=== PATIENT | male | born 1960 | race Caucasian/White ===

== ENCOUNTER 2017-06-23 11:34 | Emergency (ER) | payer BC ==
[~2017-06-23] VITALS: Ht 172.7 cm; Wt 93.0 kg
[~2017-06-23 11:34] MED LIST: AUGMENTIN 875875 MG PO; CEPHALEXIN500 M1 PO; HYDROCODONE BIT1 T11 PO; LIDEX 0.05% CRE15 GM T; NKHM
[2017-06-23 12:40] LABS: BASO % 0.3 % (0.0-1.0); EOS # 0.7 10*3/uL (0.0-0.4); EOS % 8.1 % (1.0-4.0); HEMATOCRIT 41.9 % (42.0-52.0); LYMPH # 1.1 10*3/uL (1.3-4.4); LYMPH % 12.1 % (27.0-41.0); MEAN CELL VOLUME 92.5 fl (80.0-94.0); MEAN CORPUSCULAR HGB 30.9 pg (27.0-31.0); MEAN CORPUSCULAR HGB CONC 33.4 g/dl (33.0-37.0); MEAN PLATELET VOLUME 10.8 fl (9.6-12.3); MONO # 0.6 10*3/uL (0.1-1.0); NEUT # 6.4 10*3/uL (2.3-7.9); NEUT % 71.8 % (47.0-73.0); PLATELET COUNT AUTOMATED 259 10*3/uL (130-400); RED BLOOD COUNT 4.53 10*6/uL (4.50-5.90); RED CELL DISTRI WIDTH 13.1 % (0-14.5)
[2017-06-23 12:51] LABS: BUN 11 mg/dl (7-24); CHLORIDE 103 mmol/L (98-107); CREATININE 0.98 mg/dL (0.70-1.30); POTASSIUM 3.9 mmol/L (3.5-5.1); SODIUM 138 mmol/L (136-145); URIC ACID 6.2 mg/dL (3.5-7.2)
[2017-06-23] MEDS ORDERED: NORCO 5-325 TA1 EACH PO (13:40)
[2017-06-23] MEDS ORDERED: INDOMETHACIN50 MG PO (13:45)
== END 2017-06-23 13:50 | disposition home or self-care (01) ==
LOC: ED 11:34
PROVIDERS: Nurse Practitioner Family
DX: M25.462 Effusion, left knee (principal); M10.9 Gout, unspecified

== ENCOUNTER → 2017-08-23 | Day surgery (SDC) | payer BC ==
[~2017-08-23] VITALS: Ht 172.7 cm; Wt 90.7 kg
[~2017-08-23] MED LIST changes: +INDOMETHACIN50 MG PO; +NORCO 5-325 TA1 EACH PO
--- NOTE | ~2017-08-23 | O ---
[place], [place] OPERATIVE NOTE NAME: VALE SHORT UNIT #: [id number] ROOM: DOCTOR: GIANLUCA MORGAN MD BIRTHDATE: [birth year] DOS: 08/23/2017 HISTORY OF PRESENT ILLNESS: A 57-year-old patient who was presented with abdominal pain, left lower quadrant pain. CT scan of the abdomen has been only positive for diverticulosis. Antibiotic therapy has been done x 10 days and resolved. ALLERGIES: No known medication. FAMILY HISTORY: Noncontributory. PAST SURGICAL HISTORY: Unremarkable. PAST MEDICAL HISTORY: Diverticulosis. PROCEDURE: Today's procedure part of investigation is colonoscopy plus polypectomy with a snare. PREMEDICATION: Propofol. SCOPE: Olympus forward-viewing colonoscope 10L video. REPORT: After putting the patient in left lateral position and application of lubricant to the scope, the scope was introduced. Thereafter, under direct visualization, advanced through the length of colon without difficulty. The only difficulty that I am facing is semi-liquid stool all along the length of colon. However, I achieved visualization of the appendix and ileocecal valve and photographed both. There was a sessile broad-based polypoid lesion in sigmoid colon, with a snare polypectomy, sample was recovered. The patient extubated, tolerated procedure well. IMPRESSION: Diverticulosis, sessile colonic polyp of the sigmoid colon, status post snare polypectomy. PLAN: Resumption of activity. FOLLOWUP: Routinely with you in office, p.r.n. visit with us in GI Clinic. Follow-up colonoscopy in 10 years unless patient has symptoms for which follow-up should be sooner. [place], [place] OPERATIVE NOTE NAME: VALE SHORT UNIT #: [id number] ROOM: DOCTOR: GIANLUCA MORGAN MD BIRTHDATE: [birth year] GIANLUCA MORGAN MD CM:OPRECORD:OPERATIVE NOTE [id number] GIANLUAC MORGAN MD 09/02/17 1736 interface
[2017-08-23 14:17] VITALS: BP 114/82
[2017-08-23 15:49] VITALS: BP 123/75
[2017-08-23 16:04] VITALS: BP 129/80
[2017-08-23 16:17] VITALS: BP 120/72
== END | disposition home or self-care (01) ==
LOC: SDC 08-20 13:15
DX: D12.5 Benign neoplasm of sigmoid colon (principal); K57.30 Diverticulosis of large intestine without perforation or abscess without bleeding; M10.9 Gout, unspecified; Z87.19 Personal history of other diseases of the digestive system

== ENCOUNTER 2019-04-27 14:12 | Inpatient (IN) | payer BC ==
[~2019-04-27] VITALS: Ht 172.7 cm; Wt 95.3 kg
[2019-04-27 14:17] VITALS: BP 127/89
[2019-04-27 16:55] LABS: BASO # 0.1 10*3/uL (0.0-0.1); BASO % 0.4 % (0.0-1.0); EOS # 0.7 10*3/uL (0.0-0.4); EOS % 6.2 % (1.0-4.0); HEMATOCRIT 45.1 % (42.0-52.0); LYMPH # 1.2 10*3/uL (1.3-4.4); LYMPH % 10.9 % (27.0-41.0); MEAN CELL VOLUME 92.2 fl (80.0-94.0); MEAN CORPUSCULAR HGB 30.7 pg (27.0-31.0); MEAN CORPUSCULAR HGB CONC 33.3 g/dl (33.0-37.0); MEAN PLATELET VOLUME 10.7 fl (9.6-12.3); MONO # 1.1 10*3/uL (0.1-1.0); MONO % 9.6 % (3.0-9.0); NEUT # 8.1 10*3/uL (2.3-7.9); NEUT % 72.2 % (47.0-73.0); PLATELET COUNT AUTOMATED 250 10*3/uL (130-400); RED BLOOD COUNT 4.89 10*6/uL (4.50-5.90); RED CELL DISTRI WIDTH 13.1 % (0-14.5); WHITE BLOOD COUNT 11.3 10*3/uL (4.8-10.8)
[2019-04-27 17:06] VITALS: BP 124/84
[2019-04-27 17:12] LABS: ALBUMIN 3.5 gm/dl (3.1-4.5); ALKALINE PHOSPHATASE 121 U/L (45-117); BUN 20 mg/dl (7-24); CHLORIDE 107 mmol/L (98-107); CREATININE 1.03 mg/dL (0.70-1.30); LIPASE 62 U/L (73-393); POTASSIUM 3.7 mmol/L (3.5-5.1); SGOT/AST 44 IU/L (3-35); SGPT/ALT 96 U/L (12-78); SODIUM 136 mmol/L (136-145); TOTAL PROTEIN 7.6 gm/dL (6.4-8.2)
[2019-04-27 17:31] LABS: BILIRUBIN NEGATIVE (NEGATIVE); BLOOD NEGATIVE (NEGATIVE); CLARITY CLEAR (CLEAR); COLOR YELLOW (YELLOW); GLUCOSE NEGATIVE (NEGATIVE); KETONE NEGATIVE (NEGATIVE); LEUKO ESTERASE NEGATIVE (NEGATIVE); NITRITE NEGATIVE (NEGATIVE); SPECIFIC GRAVITY 1.025 (1.005-1.030); UROBILINOGEN 0.2 E.U./dl (0.2-1.0)
[2019-04-27 17:34] LABS: BACTERIA TRACE; EPITHELIAL CELLS 0-2; FINE GRANULAR CAST 0-2; RBC 0-2 rbc/hpf (0-2); WBC 0-2 wbc/hpf (0-5)
--- NOTE | 2019-04-27 20:51 | NUR ---
Time: 2050 A year old MALE admitted to 5E under services of KATHYA IBARRA DO. Pt. arrived via stretcher from ER. Chief complaint: ABD PAIN. SOLEDAD ANDERSON
--- NOTE | 2019-04-27 20:52 | NUR ---
PER MATERIALS HANDLING EQUIPMENT OPERATOR, STATES THAT DR NICHOLS WAS CONTACTED ABOUT CONSULT AND DOES NOT WANT CALLED AGAIN
[2019-04-27 20:55] VITALS: BP 114/83
[2019-04-27] MEDS ORDERED: ZOLPIDEM TART10 MG PO (20:57)
[2019-04-27] MEDS ORDERED: ALLOPURINOL300 MG PO (20:57)
--- NOTE | 2019-04-27 21:00 | NUR ---
The assessment has been completed. NICOLE SAUCEDO
--- NOTE | 2019-04-27 21:22 | NUR ---
MEDICATED WITH PRN DILAUDID FOR C/O LLQ PAIN RATED 8/10 ON A 0/10 PAIN SCALE. WILL MONITOR
[2019-04-28] VITALS: BP 112/82
--- NOTE | 2019-04-28 00:24 | NUR ---
PATIENT STATES DILAUDID WAS EFFECTIVE
--- NOTE | 2019-04-28 03:28 | NUR ---
MEDICATED WITH PRN DILAUDID FOR C/O ABD PAIN RATED 9/10 ON A 0/10 PAIN SCALE. WILL MONITOR
[2019-04-28 06:12] LABS: BASO % 0.5 % (0.0-1.0); EOS # 0.7 10*3/uL (0.0-0.4); EOS % 8.6 % (1.0-4.0); HEMOGLOBIN 13.7 g/dl (14.0-18.0); LYMPH # 1.5 10*3/uL (1.3-4.4); MEAN CELL VOLUME 92.7 fl (80.0-94.0); MEAN CORPUSCULAR HGB 30.2 pg (27.0-31.0); MEAN CORPUSCULAR HGB CONC 32.6 g/dl (33.0-37.0); MEAN PLATELET VOLUME 11.1 fl (9.6-12.3); MONO # 0.9 10*3/uL (0.1-1.0); MONO % 10.4 % (3.0-9.0); NEUT # 5.4 10*3/uL (2.3-7.9); NEUT % 62.1 % (47.0-73.0); PLATELET COUNT AUTOMATED 250 10*3/uL (130-400); RED BLOOD COUNT 4.53 10*6/uL (4.50-5.90); RED CELL DISTRI WIDTH 13.1 % (0-14.5); WHITE BLOOD COUNT 8.6 10*3/uL (4.8-10.8)
[2019-04-28 06:21] LABS: ACT PARTIAL THROMBO TIME 31.6 SECONDS (20.0-32.1); INTERNATIONAL NORM RATIO 0.9 (2.0-3.5)
[2019-04-28 06:31] LABS: ALBUMIN 3.1 gm/dl (3.1-4.5); BUN 15 mg/dl (7-24); CHLORIDE 109 mmol/L (98-107); CHOLESTEROL 208 mg/dL (<200); CREATININE 1.16 mg/dL (0.70-1.30); PHOSPHOROUS 2.8 mg/dL (2.5-4.9); POTASSIUM 3.9 mmol/L (3.5-5.1); SGOT/AST 31 IU/L (3-35); SGPT/ALT 77 U/L (12-78); SODIUM 139 mmol/L (136-145); TRIGLYCERIDES 205 mg/dl (<150); VLDL CHOLESTEROL 41 mg/dL (6-40)
[2019-04-28 06:39] LABS: ALKALINE PHOSPHATASE 104 U/L (45-117); FREE T4 0.93 ng/dl (0.76-1.46); HDL CHOLESTEROL 48 mg/dl (40-60); LDL CHOLESTEROL 119 mg/dL (9-159); TOTAL PROTEIN 6.9 gm/dL (6.4-8.2)
[2019-04-28 07:49] LABS: VITAMIN D, 25-HYDROXY 19.1 ng/mL (30-100)
[2019-04-28 08:00] VITALS: BP 111/83
--- NOTE | 2019-04-28 08:55 | NUR ---
PT C/O 08/18 ABD PAIN AT THIS TIME AND MEDICATED WITH IV DILAUDID PER ORDER. WILL MONITOR FOR EFFECTIVENESS.
--- NOTE | 2019-04-28 09:00 | NUR ---
Project Manager Finance in to talk to patient. Patient states lives at home with . There are no steps in the home. Physician: vance mansfield Pharmacy: [facility] Home health services: none Patient's level of ADLs: INDEPENDENT Patient has working utilities: all working DME: none Follow-up physician's appointment after d/c: will be made by [facility] surekha director upon discharge Does patient want to access PORTAL?: no Discharge plan discussed with patient, he lives at home with , he is independent in adls and ambulation, works, drives, he will return home when medically stable and denies any home needs. MARIA M PANCHAL
--- NOTE | 2019-04-28 09:30 | NUR ---
PER PATIENT, PRN DILAUDID HAS BEEN EFFCTIVE. NO FURTHER COMPLAINTS AT THIS TIME.
[2019-04-28 12:00] VITALS: BP 116/66
--- NOTE | 2019-04-28 13:00 | NUR ---
PT MEDICATED WITH DILAUDID PER PRN ORDER FOR RUQ ABD PAIN 10/18, WILL MONITOR.
--- NOTE | 2019-04-28 13:30 | NUR ---
PER PATIENT, PRN DILAUDID HAS BEEN EFFECTIVE. NO FUIRTHER COMPLAINTS. RESTING.
[2019-04-28 16:00] VITALS: BP 115/76
--- NOTE | 2019-04-28 19:23 | NUR ---
MEDICATED WITH PRN DILAUDID FOR C/O LLQ PAIN RATED 7/10 ON A 0/10 PAIN SCALE. WILL MONITOR
[2019-04-28 20:00] VITALS: BP 114/79
--- NOTE | 2019-04-28 21:42 | NUR ---
MEDICATED WITH PRN NORCO FOR C/O ABD PAIN RATED 4/10 ON A 0/10 PAIN SCALE. WILL MONITOR
[2019-04-29] VITALS: BP 128/90
--- NOTE | 2019-04-29 04:32 | NUR ---
MEDICATED WITH PRN DILAUDID FOR C/O ABD PAIN RATED 8/10 ON A 0/10 PAIN SCALE. WILL MONITOR
[2019-04-29 07:27] LABS: BASO # 0.1 10*3/uL (0.0-0.1); BASO % 0.6 % (0.0-1.0); EOS # 0.7 10*3/uL (0.0-0.4); EOS % 8.8 % (1.0-4.0); HEMATOCRIT 42.1 % (42.0-52.0); HEMOGLOBIN 13.6 g/dl (14.0-18.0); LYMPH # 1.3 10*3/uL (1.3-4.4); LYMPH % 15.3 % (27.0-41.0); MEAN CORPUSCULAR HGB 30.4 pg (27.0-31.0); MEAN CORPUSCULAR HGB CONC 32.3 g/dl (33.0-37.0); MONO # 0.8 10*3/uL (0.1-1.0); MONO % 9.4 % (3.0-9.0); NEUT # 5.3 10*3/uL (2.3-7.9); NEUT % 64.9 % (47.0-73.0); PLATELET COUNT AUTOMATED 273 10*3/uL (130-400); RED BLOOD COUNT 4.48 10*6/uL (4.50-5.90); RED CELL DISTRI WIDTH 12.9 % (0-14.5); WHITE BLOOD COUNT 8.2 10*3/uL (4.8-10.8)
[2019-04-29 08:00] VITALS: BP 114/87
[2019-04-29 08:02] LABS: BUN 16 mg/dl (7-24); CHLORIDE 109 mmol/L (98-107); CREATININE 0.93 mg/dL (0.70-1.30); SODIUM 138 mmol/L (136-145)
--- NOTE | 2019-04-29 08:30 | NUR ---
PT MEDICATED WITH IV DILAUDID SLOWLY PER PRN ORDER FOR C/O ABD PAIN. RATES PAIN 10/18. WILL MONITOR EFFECTIVENESS.
--- NOTE | 2019-04-29 09:00 | NUR ---
case management visits with patient, present, he states he will return home when medically stable and denies any home needs
--- NOTE | 2019-04-29 09:12 | NUR ---
SPOKE WITH REGARDING DIET ORDER. OKAY FOR PATIENT TO HAVE CLEAR LIQUID FOR BREAKFAST. WILL MONITOR.
--- NOTE | 2019-04-29 09:45 | NUR ---
PT MEDICATED WITH IV ZOFRAN PER PRN ORDER FOR C/O NAUSEA. WILL MONITOR EFFECTIVENESS.
--- NOTE | 2019-04-29 10:26 | NUR ---
PT MEDICATED WITH PO TYLENOL PER PRN ORDER FOR C/O HEADACHE. WILL MONITOR EFFECTIVENESS.
[2019-04-29 12:00] VITALS: BP 129/83
--- NOTE | 2019-04-29 14:00 | NUR ---
PT MEDICATED WITH IV DILAUDID PER PRN ORDER FOR C/O ABD PAIN. RATES PAIN 11/18. WILL MONITOR EFFECTIVENESS.
--- NOTE | 2019-04-29 14:30 | NUR ---
PAIN BEING RELIEVED PER PT. WILL CONTINUE TO MONITOR.
--- NOTE | 2019-04-29 15:30 | NUR ---
NORCO GIVEN PER PRN ORDER FOR C/O ABD PAIN. RATES PAIN /10. WILL MONITOR EFFECTIVENESS. CALL LIGHT WITHIN REACH.
[2019-04-29 16:00] VITALS: BP 115/76
--- NOTE | 2019-04-29 16:30 | NUR ---
NORCO RELIEVING PAIN PER PT. WILL CONTINUE TO MONITOR. IVF MAINTAINED.
--- NOTE | 2019-04-29 18:10 | NUR ---
PT MEDICATED WITH IV DILAUDID SLOWLY PER PRN ORDER FOR C/O ABD PAIN. RATES PAIN 10/18. WILL MONITOR EFFECTIVENESS.
[2019-04-29 20:00] VITALS: BP 117/75
--- NOTE | 2019-04-29 22:20 | NUR ---
PATIENT MEDICATED SLOWLY WITH DILAUDID PER PRN ORDER FOR C/O ABDOMINAL PAIN/ RATED PAIN A 6-7/10 WITH 10 BEING THE WORST. SEE EMAR. REINFORCED USE OF CALL LIGHT.
[2019-04-30] VITALS: BP 121/81
--- NOTE | 2019-04-30 00:55 | NUR ---
PATIENT RESTING QUIETLY. NO FURTHER C/O VOICED.
[2019-04-30 06:17] LABS: BASO # 0.1 10*3/uL (0.0-0.1); BASO % 0.7 % (0.0-1.0); EOS % 12.7 % (1.0-4.0); HEMOGLOBIN 13.2 g/dl (14.0-18.0); LYMPH # 1.4 10*3/uL (1.3-4.4); LYMPH % 18.6 % (27.0-41.0); MEAN CELL VOLUME 93.8 fl (80.0-94.0); MEAN CORPUSCULAR HGB 30.2 pg (27.0-31.0); MEAN CORPUSCULAR HGB CONC 32.2 g/dl (33.0-37.0); MEAN PLATELET VOLUME 10.9 fl (9.6-12.3); MONO % 12.5 % (3.0-9.0); NEUT # 4.2 10*3/uL (2.3-7.9); NEUT % 54.6 % (47.0-73.0); PLATELET COUNT AUTOMATED 278 10*3/uL (130-400); RED BLOOD COUNT 4.37 10*6/uL (4.50-5.90); RED CELL DISTRI WIDTH 12.7 % (0-14.5); WHITE BLOOD COUNT 7.6 10*3/uL (4.8-10.8)
[2019-04-30 06:29] LABS: BUN 8 mg/dl (7-24); CHLORIDE 110 mmol/L (98-107); CREATININE 1.17 mg/dL (0.70-1.30); POTASSIUM 4.1 mmol/L (3.5-5.1); SODIUM 141 mmol/L (136-145)
[2019-04-30 08:00] VITALS: BP 128/86
--- NOTE | 2019-04-30 08:54 | NUR ---
OK FOR PT TO HAVE A REGULAR DIET FOR BREAKFAST PER , ORDER UPDATED, PT NOTIFIED
--- NOTE | 2019-04-30 09:00 | NUR ---
case management visits with patient, he will return home when medically stable and denies any home needs
[2019-04-30 12:00] VITALS: BP 128/72
[2019-04-30] MEDS ORDERED: VITAMIN D32000 UNI1 PO (14:44)
--- NOTE | 2019-04-30 16:03 | NUR ---
Discharge instructions reviewed with patient/family. Patient receptive and verbalizes understanding. Follow-up care arranged. Written instructions given to patient/family. ROSIBEL OROZCO
== END 2019-04-30 16:03 | disposition home or self-care (01) | DRG 392 ==
LOC: ED 14:12 → EDHOLD 19:13 → 5E 19:13
PROVIDERS: Internal Medicine; Physician Assistant; ADMIT Internal Medicine
DX: K57.20 Diverticulitis of large intestine with perforation and abscess without bleeding (principal); R73.9 Hyperglycemia, unspecified; M10.9 Gout, unspecified; D72.810 Lymphocytopenia; R74.0 Nonspecific elevation of levels of transaminase and lactic acid dehydrogenase [LDH]; E66.9 Obesity, unspecified; Z68.31 Body mass index [BMI] 31.0-31.9, adult; Z82.49 Family history of ischemic heart disease and other diseases of the circulatory system; Z82.3 Family history of stroke; Z83.79 Family history of other diseases of the digestive system; Z86.010 Personal history of colon polyps

== ENCOUNTER → 2019-05-11 | Outpatient (CLI) | payer BC ==
[~2019-05-11] MED LIST changes: +ALLOPURINOL300 MG PO; +VITAMIN D32000 UNI1 PO; +ZOLPIDEM TART10 MG PO
[2019-05-11 10:30] LABS: BUN 15 mg/dl (7-24); CREATININE 0.97 mg/dL (0.70-1.30)
== END | disposition home or self-care (01) ==
LOC: LAB 08:48
PROVIDERS: Family Medicine
DX: K57.92 Diverticulitis of intestine, part unspecified, without perforation or abscess without bleeding (principal)

== ENCOUNTER → 2019-05-12 | Outpatient (CLI) | payer BC | END | disposition home or self-care (01) | LOC: CT 02:31 | DX: J98.11 Atelectasis (principal); K76.0 Fatty (change of) liver, not elsewhere classified ==

== ENCOUNTER → 2020-03-12 | Outpatient (CLI) | payer BC | END | disposition home or self-care (01) | LOC: COVID19 09:38 | PROVIDERS: ATTEND Student in an Organized Health Care Education/Training Program | DX: U07.1 COVID-19 (principal) ==

== ENCOUNTER → 2020-04-15 | Outpatient (CLI) | payer BC ==
[2020-04-15 11:31] LABS: BASO % 0.4 % (0.0-1.0); EOS # 0.5 10*3/uL (0.0-0.4); EOS % 6.7 % (1.0-4.0); HEMATOCRIT 42.5 % (42.0-52.0); LYMPH # 1.3 10*3/uL (1.3-4.4); LYMPH % 16.3 % (27.0-41.0); MEAN CORPUSCULAR HGB 31.1 pg (27.0-31.0); MEAN CORPUSCULAR HGB CONC 33.4 g/dl (33.0-37.0); MEAN PLATELET VOLUME 10.8 fl (9.6-12.3); MONO # 0.7 10*3/uL (0.1-1.0); MONO % 9.3 % (3.0-9.0); NEUT # 5.2 10*3/uL (2.3-7.9); PLATELET COUNT AUTOMATED 249 10*3/uL (130-400); RED BLOOD COUNT 4.57 10*6/uL (4.50-5.90); RED CELL DISTRI WIDTH 13.2 % (0-14.5); RETICULOCYTE % 1.98 % (0.50-2.50); WHITE BLOOD COUNT 7.9 10*3/uL (4.8-10.8)
[2020-04-15 11:43] LABS: ALBUMIN 3.7 gm/dl (3.1-4.5); BUN 17 mg/dl (7-24); CHLORIDE 108 mmol/L (98-107); CHOLESTEROL 252 mg/dL (<200); GAMMA GLUTAMYL TRANSPEPTIDASE 80 U/L (15-85); IRON 55 ug/dL (65-175); POTASSIUM 4.4 mmol/L (3.5-5.1); SGOT/AST 40 IU/L (3-35); SGPT/ALT 86 U/L (12-78); SODIUM 137 mmol/L (136-145); TOTAL PROTEIN 7.4 gm/dL (6.4-8.2); TRIGLYCERIDES 238 mg/dl (<150); URIC ACID 5.7 mg/dL (3.5-7.2); VLDL CHOLESTEROL 48 mg/dL (6-40)
[2020-04-15 11:43] LABS: BODY FLUID WBC 288 /uL
[2020-04-15 11:52] LABS: ALKALINE PHOSPHATASE 125 U/L (45-117); HDL CHOLESTEROL 39 mg/dl (40-60); LDL CHOLESTEROL 165 mg/dL (9-159); TOTAL IRON BINDING CAPACITY 305 ug/dl (250-450)
[2020-04-15 12:33] LABS: BF LYMPHOCYTES 27 %; BF MACROPHAGES 52 %; BF NEUTROPHILS 12 %
[2020-04-16 11:07] LABS: ACID FAST SPEC PROCESSING Concentration (.)
[2020-05-29 11:04] LABS: ACID FAST CULTURE Negative (.)
== END | disposition home or self-care (01) ==
LOC: LAB 10:30
PROVIDERS: Family Medicine; ATTEND Orthopaedic Surgery
DX: M25.462 Effusion, left knee (principal); R79.89 Other specified abnormal findings of blood chemistry; R53.83 Other fatigue; E78.5 Hyperlipidemia, unspecified; Z79.899 Other long term (current) drug therapy

== ENCOUNTER 2020-09-29 11:13 | Inpatient (IN) | payer BC ==
[~2020-09-29] VITALS: Ht 174 cm; Wt 96.2 kg
[2020-09-29 11:15] VITALS: BP 140/87
[2020-09-29 11:36] LABS: BASO # 0.1 10*3/uL (0.0-0.1); BASO % 0.7 % (0.0-1.0); EOS # 0.6 10*3/uL (0.0-0.4); EOS % 7.7 % (1.0-4.0); HEMATOCRIT 45.9 % (42.0-52.0); LYMPH # 1.5 10*3/uL (1.3-4.4); LYMPH % 18.4 % (27.0-41.0); MEAN CELL VOLUME 90.9 fl (80.0-94.0); MEAN CORPUSCULAR HGB 30.3 pg (27.0-31.0); MEAN CORPUSCULAR HGB CONC 33.3 g/dl (33.0-37.0); MONO % 12.3 % (3.0-9.0); NEUT # 4.9 10*3/uL (2.3-7.9); NEUT % 60.3 % (47.0-73.0); PLATELET COUNT AUTOMATED 290 10*3/uL (130-400); RED BLOOD COUNT 5.05 10*6/uL (4.50-5.90); RED CELL DISTRI WIDTH 13.8 % (0-14.5); WHITE BLOOD COUNT 8.1 10*3/uL (4.8-10.8)
[2020-09-29 11:53] LABS: ALBUMIN 3.7 gm/dl (3.1-4.5); ALKALINE PHOSPHATASE 136 U/L (45-117); BUN 17 mg/dl (7-24); CHLORIDE 108 mmol/L (98-107); CREATININE 1.06 mg/dL (0.70-1.30); POTASSIUM 4.3 mmol/L (3.5-5.1); SGOT/AST 55 IU/L (3-35); SGPT/ALT 76 U/L (12-78); SODIUM 136 mmol/L (136-145); TOTAL PROTEIN 7.6 gm/dL (6.4-8.2)
[2020-09-29 11:54] LABS: TROPONIN I < 0.015 ng/ml (<0.045)
[2020-09-29 12:56] VITALS: BP 127/77
[2020-09-29 14:10] VITALS: BP 107/64
[2020-09-29 16:45] VITALS: BP 124/68
[2020-09-29 17:01] VITALS: BP 124/68
[2020-09-29] MEDS ORDERED: DICLOFENAC SOD75 MG PO (17:06)
[2020-09-29] MEDS ORDERED: CITALOPRAM HYDR10 MG PO (17:07)
[2020-09-29] MEDS ORDERED: ATORVASTATIN CA10 M1 PO (17:07)
[2020-09-29 20:00] VITALS: BP 126/88
[2020-09-30] VITALS: BP 124/98
[2020-09-30 06:56] LABS: BASO # 0.1 10*3/uL (0.0-0.1); BASO % 0.5 % (0.0-1.0); EOS # 0.8 10*3/uL (0.0-0.4); EOS % 8.5 % (1.0-4.0); HEMATOCRIT 45.3 % (42.0-52.0); LYMPH # 1.5 10*3/uL (1.3-4.4); LYMPH % 16.8 % (27.0-41.0); MEAN CELL VOLUME 91.1 fl (80.0-94.0); MEAN CORPUSCULAR HGB CONC 32.9 g/dl (33.0-37.0); MEAN PLATELET VOLUME 11.1 fl (9.6-12.3); MONO % 10.7 % (3.0-9.0); NEUT # 5.8 10*3/uL (2.3-7.9); NEUT % 63.1 % (47.0-73.0); PLATELET COUNT AUTOMATED 255 10*3/uL (130-400); RED BLOOD COUNT 4.97 10*6/uL (4.50-5.90); RED CELL DISTRI WIDTH 13.6 % (0-14.5); WHITE BLOOD COUNT 9.1 10*3/uL (4.8-10.8)
[2020-09-30 07:12] LABS: ALBUMIN 3.6 gm/dl (3.1-4.5); BUN 20 mg/dl (7-24); CHLORIDE 106 mmol/L (98-107); POTASSIUM 4.1 mmol/L (3.5-5.1); SODIUM 134 mmol/L (136-145)
[2020-09-30 07:22] LABS: ALKALINE PHOSPHATASE 112 U/L (45-117); CHOLESTEROL 197 mg/dL (<200); CREATININE 0.97 mg/dL (0.70-1.30); FREE T4 0.79 ng/dl (0.76-1.46); LDL CHOLESTEROL 92 mg/dL (9-159); SGOT/AST 39 IU/L (3-35); SGPT/ALT 69 U/L (12-78); TOTAL PROTEIN 6.8 gm/dL (6.4-8.2); TRIGLYCERIDES 316 mg/dl (<150)
[2020-09-30 07:57] LABS: VITAMIN D, 25-HYDROXY 33.5 ng/mL (30-100)
[2020-09-30 08:00] VITALS: BP 135/90
[2020-09-30 12:00] VITALS: BP 140/74
[2020-09-30] MEDS ORDERED: NEURONTIN100 MG PO (15:16)
[2020-09-30 16:17] LABS: URINE AMPHETAMINES < 1000 (1000ng/ml); URINE BARBITURATES < 200 (200ng/ml); URINE BENZODIAZEPINES < 200 (200ng/ml); URINE CANNABINOIDS (THC) < 50 (50ng/ml); URINE COCAINE < 300 (300ng/ml); URINE METHADONE < 300 (300ng/ml); URINE OPIATES > 300 (300ng/ml)
[2020-09-30 16:18] LABS: URINE PHENCYCLIDINE < 25 (25ng/ml)
== END 2020-09-30 16:00 | disposition home or self-care (01) | DRG 552 ==
LOC: ED 11:13 → EDHOLD 15:08 → 4E 15:08
PROVIDERS: Emergency Medicine; Family Medicine; Internal Medicine; ADMIT Student in an Organized Health Care Education/Training Program; ATTEND Student in an Organized Health Care Education/Training Program
PROC: 4A02XM4 Measurement of Cardiac Total Activity, External Approach (ICD-10-PCS; principal; 2020-09-30)
PROC: 3E073KZ Introduction of Other Diagnostic Substance into Coronary Artery, Percutaneous Approach (ICD-10-PCS; 2020-09-30)
DX: M50.30 Other cervical disc degeneration, unspecified cervical region (principal); F14.10 Cocaine abuse, uncomplicated; F10.10 Alcohol abuse, uncomplicated; E66.9 Obesity, unspecified; M10.9 Gout, unspecified; E78.5 Hyperlipidemia, unspecified; F17.290 Nicotine dependence, other tobacco product, uncomplicated; E87.8 Other disorders of electrolyte and fluid balance, not elsewhere classified; E83.41 Hypermagnesemia; Z79.899 Other long term (current) drug therapy; Z82.3 Family history of stroke

== ENCOUNTER → 2020-11-16 | Outpatient (CLI) | payer BC ==
[~2020-11-16] MED LIST changes: +ATORVASTATIN CA10 M1 PO; +CITALOPRAM HYDR10 MG PO; +DICLOFENAC SOD75 MG PO; +NEURONTIN100 MG PO
[2020-11-16 16:34] LABS: ALBUMIN 3.5 gm/dl (3.1-4.5); ALKALINE PHOSPHATASE 135 U/L (45-117); CHOLESTEROL 152 mg/dL (<200); CPK 216 U/L (39-308); GAMMA GLUTAMYL TRANSPEPTIDASE 67 U/L (15-85); LDL CHOLESTEROL 76 mg/dL (9-159); SGOT/AST 36 IU/L (3-35); SGPT/ALT 62 U/L (12-78); TOTAL PROTEIN 7.4 gm/dL (6.4-8.2); TRIGLYCERIDES 190 mg/dl (<150)
== END | disposition home or self-care (01) ==
LOC: LAB 15:50
PROVIDERS: ATTEND Family Medicine
DX: R79.89 Other specified abnormal findings of blood chemistry (principal); R53.83 Other fatigue; E78.5 Hyperlipidemia, unspecified

== ENCOUNTER → 2020-11-21 | Outpatient (CLI) | payer BC ==
[2020-11-21 10:30] LABS: HEMATOCRIT 43.4 % (42.0-52.0); MEAN CELL VOLUME 92.1 fl (80.0-94.0); MEAN CORPUSCULAR HGB 30.6 pg (27.0-31.0); MEAN CORPUSCULAR HGB CONC 33.2 g/dl (33.0-37.0); MEAN PLATELET VOLUME 10.5 fl (9.6-12.3); PLATELET COUNT AUTOMATED 364 10*3/uL (130-400); RED BLOOD COUNT 4.71 10*6/uL (4.50-5.90); WHITE BLOOD COUNT 12.3 10*3/uL (4.8-10.8)
[2020-11-21 11:37] LABS: PLATELET SUFFICIENCY NORMAL (NORMAL); TOTAL CELLS COUNTED 100 #CELLS
== END | disposition home or self-care (01) ==
LOC: LAB 09:57
PROVIDERS: ATTEND Orthopaedic Surgery
DX: M25.561 Pain in right knee (principal); Z98.890 Other specified postprocedural states

== ENCOUNTER → 2021-01-20 | Outpatient (CLI) | payer BC | END | disposition home or self-care (01) | LOC: COVID19 15:25 | PROVIDERS: ATTEND Internal Medicine | DX: Z11.52 Encounter for screening for COVID-19 (principal) ==

== ENCOUNTER → 2021-01-27 | Outpatient (CLI) | payer BC ==
[2021-01-27 10:19] LABS: BASO # 0.1 10*3/uL (0.0-0.1); BASO % 0.6 % (0.0-1.0); EOS # 0.5 10*3/uL (0.0-0.4); EOS % 5.8 % (1.0-4.0); HEMATOCRIT 43.3 % (42.0-52.0); LYMPH # 1.4 10*3/uL (1.3-4.4); LYMPH % 15.8 % (27.0-41.0); MEAN CELL VOLUME 91.9 fl (80.0-94.0); MEAN CORPUSCULAR HGB 30.6 pg (27.0-31.0); MEAN CORPUSCULAR HGB CONC 33.3 g/dl (33.0-37.0); MEAN PLATELET VOLUME 10.9 fl (9.6-12.3); MONO # 0.7 10*3/uL (0.1-1.0); MONO % 7.2 % (3.0-9.0); NEUT # 6.3 10*3/uL (2.3-7.9); NEUT % 69.8 % (47.0-73.0); PLATELET COUNT AUTOMATED 308 10*3/uL (130-400); RED BLOOD COUNT 4.71 10*6/uL (4.50-5.90); WHITE BLOOD COUNT 9.1 10*3/uL (4.8-10.8)
[2021-01-27 10:23] LABS: BILIRUBIN Negative (Negative); BLOOD Negative (Negative); CLARITY Clear (Clear); COLOR Yellow (Yellow); GLUCOSE Negative (Negative); KETONE Trace (Negative); LEUKO ESTERASE Negative (Negative); NITRITE Negative (Negative); PH 5.5 (4.5-8.0); UROBILINOGEN 0.2 E.U./dl (0.0-1.0)
[2021-01-27 10:30] LABS: ACT PARTIAL THROMBO TIME 30.6 SECONDS (20.0-32.1)
[2021-01-27 10:34] LABS: ALBUMIN 3.5 gm/dl (3.1-4.5); ALKALINE PHOSPHATASE 136 U/L (45-117); BUN 16 mg/dl (7-24); CHLORIDE 106 mmol/L (98-107); CREATININE 0.94 mg/dL (0.70-1.30); POTASSIUM 4.1 mmol/L (3.5-5.1); SGOT/AST 28 IU/L (3-35); SGPT/ALT 54 U/L (12-78); SODIUM 137 mmol/L (136-145); TOTAL PROTEIN 7.2 gm/dL (6.4-8.2)
[2021-01-27 10:38] LABS: BACTERIA TRACE; EPITHELIAL CELLS 0-2; MUCOUS 1+; WBC 0-2 wbc/hpf (0-5)
== END | disposition home or self-care (01) ==
LOC: LAB 09:35
PROVIDERS: ATTEND Orthopaedic Surgery
DX: Z01.818 Encounter for other preprocedural examination (principal); M84.361A Stress fracture, right tibia, initial encounter for fracture; M93.261 Osteochondritis dissecans, right knee

== ENCOUNTER → 2021-08-04 | Outpatient (CLI) | payer BC ==
[2021-08-04 08:56] LABS: BASO % 0.5 % (0.0-1.0); EOS # 0.7 10*3/uL (0.0-0.4); EOS % 8.9 % (1.0-4.0); HEMATOCRIT 43.7 % (42.0-52.0); LYMPH # 1.6 10*3/uL (1.3-4.4); LYMPH % 19.1 % (27.0-41.0); MEAN CELL VOLUME 87.4 fl (80.0-94.0); MEAN CORPUSCULAR HGB 29.8 pg (27.0-31.0); MEAN CORPUSCULAR HGB CONC 34.1 g/dl (33.0-37.0); MEAN PLATELET VOLUME 10.3 fl (9.6-12.3); MONO # 0.9 10*3/uL (0.1-1.0); MONO % 10.8 % (3.0-9.0); NEUT # 4.9 10*3/uL (2.3-7.9); NEUT % 60.3 % (47.0-73.0); PLATELET COUNT AUTOMATED 288 10*3/uL (130-400); RETICULOCYTE % 1.44 % (0.50-2.50); WHITE BLOOD COUNT 8.2 10*3/uL (4.8-10.8)
[2021-08-04 09:03] LABS: BILIRUBIN Negative (Negative); BLOOD Negative (Negative); CLARITY Clear (Clear); COLOR Yellow (Yellow); GLUCOSE Negative (Negative); KETONE Negative (Negative); LEUKO ESTERASE Negative (Negative); NITRITE Negative (Negative); PH 5.5 (4.5-8.0); SPECIFIC GRAVITY 1.015 (1.001-1.030); UROBILINOGEN 0.2 E.U./dl (0.0-1.0)
[2021-08-04 09:13] LABS: ALKALINE PHOSPHATASE 141 U/L (45-117); BUN 13 mg/dl (7-24); CHLORIDE 109 mmol/L (98-107); CHOLESTEROL 157 mg/dL (<200); CREATININE 0.88 mg/dL (0.70-1.30); GAMMA GLUTAMYL TRANSPEPTIDASE 53 U/L (15-85); LDL CHOLESTEROL 79 mg/dL (9-159); POTASSIUM 4.1 mmol/L (3.5-5.1); SGPT/ALT 37 U/L (12-78); SODIUM 138 mmol/L (136-145); TOTAL PROTEIN 7.4 gm/dL (6.4-8.2); TRIGLYCERIDES 180 mg/dl (<150); URIC ACID 4.9 mg/dL (3.5-7.2)
[2021-08-04 09:21] LABS: IRON 62 ug/dL (65-175); SGOT/AST 27 IU/L (3-35); TOTAL IRON BINDING CAPACITY 328 ug/dl (250-450)
[2021-08-04 09:44] LABS: FERRITIN 100.6 ng/mL (22.0-322.0); VITAMIN D, 25-HYDROXY 20.7 ng/mL (30-100)
[2021-08-04 10:49] LABS: EPITHELIAL CELLS 0-2; RBC 0-2 rbc/hpf (0-2)
[2021-08-05 06:08] LABS: RHEUMATOID FACTOR 11.2 IU/mL (<14.0)
[2021-08-08 15:06] LABS: ANTI-DSDNA ANTIBODIES <1 IU/mL (0-9)
== END | disposition home or self-care (01) ==
LOC: LAB 08:25
PROVIDERS: ATTEND Family Medicine
DX: R53.83 Other fatigue (principal); R79.89 Other specified abnormal findings of blood chemistry; E78.5 Hyperlipidemia, unspecified; E55.9 Vitamin D deficiency, unspecified

== ENCOUNTER → 2021-08-16 | Outpatient (CLI) | payer BC | END | disposition home or self-care (01) | LOC: RAD 13:34 | PROVIDERS: ATTEND Family Medicine | DX: R05.9 Cough, unspecified (principal); M51.34 Other intervertebral disc degeneration, thoracic region ==

== ENCOUNTER → 2022-04-12 | Outpatient (CLI) | payer BC ==
[2022-04-12 12:58] LABS: BASO # 0.1 10*3/uL (0.0-0.1); BASO % 0.6 % (0.0-1.0); EOS # 0.4 10*3/uL (0.0-0.4); EOS % 5.5 % (1.0-4.0); LYMPH # 1.4 10*3/uL (1.3-4.4); LYMPH % 18.3 % (27.0-41.0); MEAN CELL VOLUME 89.5 fl (80.0-94.0); MEAN CORPUSCULAR HGB CONC 33.5 g/dl (33.0-37.0); MEAN PLATELET VOLUME 10.4 fl (9.6-12.3); MONO # 0.7 10*3/uL (0.1-1.0); NEUT # 5.1 10*3/uL (2.3-7.9); NEUT % 66.1 % (47.0-73.0); PLATELET COUNT AUTOMATED 276 10*3/uL (130-400); RED BLOOD COUNT 5.14 10*6/uL (4.50-5.90); RED CELL DISTRI WIDTH 13.4 % (0-14.5); RETICULOCYTE % 1.35 % (0.50-2.50); WHITE BLOOD COUNT 7.8 10*3/uL (4.8-10.8)
[2022-04-12 13:10] LABS: BILIRUBIN Negative (Negative); BLOOD Negative (Negative); CLARITY Clear (Clear); COLOR Yellow (Yellow); GLUCOSE Negative (Negative); KETONE Negative (Negative); LEUKO ESTERASE Negative (Negative); NITRITE Negative (Negative); UROBILINOGEN 0.2 E.U./dl (0.0-1.0)
[2022-04-12 13:18] LABS: ALKALINE PHOSPHATASE 122 U/L (46-116); BUN 10 mg/dl (9-23); CHLORIDE 103 mmol/L (98-107); CHOLESTEROL 177 mg/dL (<200); GAMMA GLUTAMYL TRANSPEPTIDASE 55 U/L (0-73); LDL CHOLESTEROL 85 mg/dL (9-159); POTASSIUM 4.1 mmol/L (3.4-5.1); SGPT/ALT 39 U/L (10-49); THYROID STIM HORMONE (HS) 1.544 uIU/ml (0.550-4.780); TOTAL PROTEIN 7.3 gm/dL (6.0-8.0); TRIGLYCERIDES 228 mg/dl (<150); URIC ACID 5.4 mg/dL (3.7-9.2); VITAMIN D, 25-HYDROXY 14.5 ng/mL (30-100)
[2022-04-12 13:32] LABS: EPITHELIAL CELLS 0-2; WBC 0-2 wbc/hpf (0-5)
== END | disposition home or self-care (01) ==
LOC: LAB 12:28
PROVIDERS: Family Medicine; ATTEND Nurse Practitioner Family
DX: C61 Malignant neoplasm of prostate (principal); E78.5 Hyperlipidemia, unspecified; E55.9 Vitamin D deficiency, unspecified; R79.89 Other specified abnormal findings of blood chemistry; R53.83 Other fatigue; R74.8 Abnormal levels of other serum enzymes

== ENCOUNTER → 2022-04-23 | Outpatient (CLI) | payer BC ==
[2022-04-24 16:08] LABS: ANTI-DSDNA ANTIBODIES 1 IU/mL (0-9)
== END | disposition home or self-care (01) ==
LOC: LAB 15:58
PROVIDERS: ATTEND Family Medicine
DX: E55.9 Vitamin D deficiency, unspecified (principal); R79.89 Other specified abnormal findings of blood chemistry; R53.83 Other fatigue

== ENCOUNTER 2022-09-24 13:47 | Emergency (ER) | payer BC ==
[~2022-09-24] VITALS: Wt 101.2 kg
[2022-09-24 15:36] LABS: HEMATOCRIT 42.3 % (42.0-52.0); MEAN CELL VOLUME 92.2 fl (80.0-94.0); MEAN CORPUSCULAR HGB 30.1 pg (27.0-31.0); MEAN CORPUSCULAR HGB CONC 32.6 g/dl (33.0-37.0); MEAN PLATELET VOLUME 10.4 fl (9.6-12.3); PLATELET COUNT AUTOMATED 300 10*3/uL (130-400); RED BLOOD COUNT 4.59 10*6/uL (4.50-5.90); RED CELL DISTRI WIDTH 14.1 % (0-14.5); WHITE BLOOD COUNT 13.2 10*3/uL (4.8-10.8)
[2022-09-24 15:43] LABS: MANUAL DIFF REFLEX YES
[2022-09-24 15:57] LABS: ALKALINE PHOSPHATASE 174 U/L (46-116); BUN 12 mg/dl (9-23); CHLORIDE 105 mmol/L (98-107); POTASSIUM 3.7 mmol/L (3.4-5.1); SGPT/ALT 127 U/L (10-49); TOTAL PROTEIN 7.4 gm/dL (6.0-8.0)
[2022-09-24 16:15] LABS: BURR CELLS FEW; OVALOCYTES FEW; TOTAL CELLS COUNTED 100 #CELLS
[2022-09-24 16:18] LABS: PLATELET SUFFICIENCY NORMAL (NORMAL)
[2022-09-24 17:46] LABS: BILIRUBIN Negative (Negative); BLOOD 3+ (Negative); CLARITY Clear (Clear); COLOR Yellow (Yellow); GLUCOSE Negative (Negative); KETONE Trace (Negative); LEUKO ESTERASE Negative (Negative); NITRITE Negative (Negative); PH 6.5 (4.5-8.0); SPECIFIC GRAVITY >= 1.030 (1.001-1.030)
[2022-09-24 18:00] LABS: BACTERIA 1+; MUCOUS 1+; RBC TNTC rbc/hpf (0-2)
[2022-09-24] MEDS ORDERED: ZITHROMAX500 MG PO (18:16)
== END 2022-09-24 18:38 | disposition home or self-care (01) ==
LOC: ED 13:47
PROVIDERS: Nurse Practitioner Family
DX: J32.9 Chronic sinusitis, unspecified (principal); Z20.822 Contact with and (suspected) exposure to COVID-19; F17.210 Nicotine dependence, cigarettes, uncomplicated; Z79.899 Other long term (current) drug therapy; Z98.890 Other specified postprocedural states

== ENCOUNTER → 2023-09-04 | Outpatient (CLI) | payer BC ==
[~2023-09-04] MED LIST changes: +ZITHROMAX500 MG PO
[2023-09-04 10:22] LABS: BILIRUBIN Negative (Negative); BLOOD Negative (Negative); CLARITY Clear (Clear); COLOR Yellow (Yellow); GLUCOSE Negative (Negative); KETONE Negative (Negative); LEUKO ESTERASE Negative (Negative); NITRITE Negative (Negative); PH 5.5 (4.5-8.0); UROBILINOGEN 0.2 E.U./dl (0.0-1.0)
[2023-09-04 10:23] LABS: BASO # 0.1 10*3/uL (0.0-0.1); BASO % 0.7 % (0.0-1.0); EOS # 0.6 10*3/uL (0.0-0.4); EOS % 7.2 % (1.0-4.0); HEMATOCRIT 43.3 % (42.0-52.0); LYMPH # 1.2 10*3/uL (1.3-4.4); LYMPH % 15.4 % (27.0-41.0); MEAN CELL VOLUME 91.7 fl (80.0-94.0); MEAN CORPUSCULAR HGB 30.1 pg (27.0-31.0); MEAN CORPUSCULAR HGB CONC 32.8 g/dl (33.0-37.0); MEAN PLATELET VOLUME 10.7 fl (9.6-12.3); MONO # 0.7 10*3/uL (0.1-1.0); MONO % 9.1 % (3.0-9.0); NEUT # 5.2 10*3/uL (2.3-7.9); NEUT % 67.1 % (47.0-73.0); PLATELET COUNT AUTOMATED 237 10*3/uL (130-400); RED BLOOD COUNT 4.72 10*6/uL (4.50-5.90); RED CELL DISTRI WIDTH 13.9 % (0-14.5); RETICULOCYTE % 1.53 % (0.50-2.50); WHITE BLOOD COUNT 7.7 10*3/uL (4.8-10.8)
[2023-09-04 10:31] LABS: WBC 0-2 wbc/hpf (0-5)
[2023-09-04 10:45] LABS: ALKALINE PHOSPHATASE 128 U/L (46-116); BUN 9 mg/dl (9-23); CHLORIDE 109 mmol/L (98-107); CHOLESTEROL 147 mg/dL (<200); GAMMA GLUTAMYL TRANSPEPTIDASE 58 U/L (0-73); LDL CHOLESTEROL 68 mg/dL (9-159); POTASSIUM 4.3 mmol/L (3.4-5.1); SGPT/ALT 37 U/L (5-49); T3 UPTAKE 33.2 % (22.4-36.7); THYROXINE (T4) TOTAL 4.4 ug/dl (4.5-10.9); TOTAL PROTEIN 6.9 gm/dL (6.0-8.0); TRIGLYCERIDES 196 mg/dl (<150)
[2023-09-04 11:50] LABS: VITAMIN D, 25-HYDROXY 25.9 ng/mL (30-100)
== END | disposition home or self-care (01) ==
LOC: LAB 10:01
PROVIDERS: ATTEND Family Medicine
DX: E55.9 Vitamin D deficiency, unspecified (principal); E78.5 Hyperlipidemia, unspecified; R79.89 Other specified abnormal findings of blood chemistry; R53.83 Other fatigue

== ENCOUNTER → 2024-02-27 | Outpatient (CLI) | payer BC | END | disposition home or self-care (01) | LOC: RAD 08:29 | PROVIDERS: ATTEND Family Medicine | DX: R06.02 Shortness of breath (principal); R07.89 Other chest pain ==

== ENCOUNTER → 2024-04-29 | Outpatient (CLI) | payer BC ==
[2024-04-29 09:53] LABS: BASO % 0.5 % (0.0-1.0); BILIRUBIN Negative (Negative); BLOOD Negative (Negative); CLARITY Clear (Clear); COLOR Yellow (Yellow); EOS # 0.8 10*3/uL (0.0-0.4); EOS % 9.6 % (1.0-4.0); GLUCOSE Negative (Negative); HEMATOCRIT 41.9 % (42.0-52.0); KETONE Negative (Negative); LEUKO ESTERASE Negative (Negative); MEAN CELL VOLUME 91.5 fl (80.0-94.0); MEAN CORPUSCULAR HGB 29.5 pg (27.0-31.0); MEAN CORPUSCULAR HGB CONC 32.2 g/dl (33.0-37.0); MEAN PLATELET VOLUME 10.9 fl (9.6-12.3); MONO # 0.8 10*3/uL (0.1-1.0); MONO % 10.3 % (3.0-9.0); NEUT # 5.2 10*3/uL (2.3-7.9); NITRITE Negative (Negative); PLATELET COUNT AUTOMATED 265 10*3/uL (130-400); RED BLOOD COUNT 4.58 10*6/uL (4.50-5.90); RED CELL DISTRI WIDTH 13.9 % (0-14.5); RETICULOCYTE % 1.83 % (0.50-2.50); UROBILINOGEN 0.2 E.U./dl (0.0-1.0); WHITE BLOOD COUNT 7.9 10*3/uL (4.8-10.8)
[2024-04-29 10:09] LABS: BACTERIA TRACE; EPITHELIAL CELLS 0-2; WBC 0-2 wbc/hpf (0-5)
[2024-04-29 10:29] LABS: VITAMIN D, 25-HYDROXY 19.8 ng/mL (30-100)
[2024-04-29 10:30] LABS: ALKALINE PHOSPHATASE 136 U/L (46-116); BUN 17 mg/dl (9-23); CHLORIDE 105 mmol/L (98-107); CHOLESTEROL 154 mg/dL (<200); GAMMA GLUTAMYL TRANSPEPTIDASE 52 U/L (0-73); LDL CHOLESTEROL 64 mg/dL (9-159); POTASSIUM 4.1 mmol/L (3.4-5.1); SGPT/ALT 38 U/L (5-49); THYROXINE (T4) TOTAL 4.6 ug/dl (4.5-10.9); TOTAL PROTEIN 6.7 gm/dL (6.0-8.0); TRIGLYCERIDES 255 mg/dl (<150)
== END | disposition home or self-care (01) ==
LOC: LAB 09:24
PROVIDERS: ATTEND Family Medicine
DX: R79.89 Other specified abnormal findings of blood chemistry (principal); R53.83 Other fatigue; E78.5 Hyperlipidemia, unspecified; E59 Dietary selenium deficiency

== ENCOUNTER 2024-07-28 16:04 | Emergency (ER) | payer BC ==
[~2024-07-28] VITALS: Ht 172.7 cm; Wt 95.3 kg
[2024-07-28] MEDS ORDERED: CEPHALEXIN500 M1 PO (17:28)
[2024-07-28] MEDS ORDERED: PREDNISONE50 MG PO (17:28)
[2024-07-28] MEDS ORDERED: Acetaminophen/Hydrocodone 5 MG/325 MG TABLET PO ONE (17:30)
== END 2024-07-28 17:56 | disposition home or self-care (01) ==
LOC: ED 16:04
DX: S60.222A Contusion of left hand, initial encounter (principal); F17.200 Nicotine dependence, unspecified, uncomplicated; Z79.899 Other long term (current) drug therapy; Z98.890 Other specified postprocedural states; W22.8XXA Striking against or struck by other objects, initial encounter; Y93.89 Activity, other specified; Y92.89 Other specified places as the place of occurrence of the external cause; Y99.8 Other external cause status

== ENCOUNTER → 2024-09-18 | Outpatient (CLI) | payer BC ==
[~2024-09-18] MED LIST changes: +PREDNISONE50 MG PO
[2024-09-18 10:23] LABS: BASO # 0.1 10*3/uL (0.0-0.1); BASO % 0.5 % (0.0-1.0); EOS # 0.5 10*3/uL (0.0-0.4); EOS % 5.6 % (1.0-4.0); MEAN CELL VOLUME 88.8 fl (80.0-94.0); MEAN CORPUSCULAR HGB 28.7 pg (27.0-31.0); MEAN PLATELET VOLUME 11.0 fl (9.6-12.3); MONO # 0.9 10*3/uL (0.1-1.0); MONO % 9.4 % (3.0-9.0); NEUT # 6.6 10*3/uL (2.3-7.9); NEUT % 70.5 % (47.0-73.0); NUCLEATED RED BLOOD CELL 0.0 % (0.0-0.0); NUCLEATED RED BLOOD CELL 0.0 10*3/uL (0.0-0.0); PLATELET COUNT AUTOMATED 283 10*3/uL (130-400); RED CELL DISTRI WIDTH 14.5 % (0-14.5); RETICULOCYTE % 1.42 % (0.50-2.50)
[2024-09-18 10:45] LABS: BUN 15 mg/dl (9-23); LDL CHOLESTEROL 69 mg/dL (9-159); SGPT/ALT 31 U/L (5-49)
[2024-09-18 11:17] LABS: VITAMIN D, 25-HYDROXY 31.5 ng/mL (30-100)
== END | disposition home or self-care (01) ==
LOC: LAB 09:36
PROVIDERS: ATTEND Family Medicine
DX: E11.9 Type 2 diabetes mellitus without complications (principal); E55.9 Vitamin D deficiency, unspecified; E78.5 Hyperlipidemia, unspecified; R79.89 Other specified abnormal findings of blood chemistry; R53.83 Other fatigue

== ENCOUNTER → 2024-11-24 | Outpatient (CLI) | payer BC ==
[2024-11-24 12:00] LABS: BASO # 0.0 10*3/uL (0.0-0.1); BASO % 0.5 % (0.0-1.0); BILIRUBIN Negative (Negative); BLOOD Negative (Negative); CLARITY Clear (Clear); COLOR Yellow (Yellow); EOS # 0.6 10*3/uL (0.0-0.4); EOS % 7.6 % (1.0-4.0); KETONE Negative (Negative); LEUKO ESTERASE Negative (Negative); MEAN CELL VOLUME 91.5 fl (80.0-94.0); MEAN CORPUSCULAR HGB 29.8 pg (27.0-31.0); MEAN PLATELET VOLUME 10.7 fl (9.6-12.3); MONO # 0.7 10*3/uL (0.1-1.0); MONO % 9.6 % (3.0-9.0); NEUT # 5.0 10*3/uL (2.3-7.9); NEUT % 67.7 % (47.0-73.0); NITRITE Negative (Negative); NUCLEATED RED BLOOD CELL 0.0 % (0.0-0.0); NUCLEATED RED BLOOD CELL 0.0 10*3/uL (0.0-0.0); PH 6.0 (4.5-8.0); PLATELET COUNT AUTOMATED 232 10*3/uL (130-400); RED CELL DISTRI WIDTH 14.0 % (0-14.5); RETICULOCYTE % 1.44 % (0.50-2.50); SPECIFIC GRAVITY 1.015 (1.001-1.030); UROBILINOGEN 0.2 E.U./dl (0.0-1.0)
[2024-11-24 12:33] LABS: BACTERIA TRACE; WBC 0-2 wbc/hpf (0-5)
[2024-11-24 12:36] LABS: BUN 14 mg/dl (9-23); GAMMA GLUTAMYL TRANSFERASE 56 U/L (0-73); LDL CHOLESTEROL 126 mg/dL (9-159); SGPT/ALT 46 U/L (5-49)
[2024-11-24 13:01] LABS: VITAMIN D, 25-HYDROXY 27.4 ng/mL (30-100)
== END | disposition home or self-care (01) ==
LOC: LAB 11:32
PROVIDERS: ATTEND Family Medicine
DX: R79.89 Other specified abnormal findings of blood chemistry (principal); R78.5 Finding of other psychotropic drug in blood; E55.9 Vitamin D deficiency, unspecified; R53.83 Other fatigue